=== PATIENT | female | born 1965 | race African-American/Black ===

== ENCOUNTER 2017-05-03 13:11 | Emergency (ER) | payer OTHER ==
[~2017-05-03] VITALS: Ht 165.1 cm; Wt 77.1 kg
--- NOTE | ~2017-05-03 | EKG ---
[place] [address] [facility] [place] [address] ELECTROCARDIOGRAM REPORT Name: ILEANA DRAKE Room #: DEP JAIMEE Du#: [id number] Admission: 05/03/17 Attend Phys: Discharge: 05/03/17 Date of : 63 Report #: [id number] THIS REPORT FOR: //name// [facility] ED Test Date: 2017-05-03 Test Time: 14:29:00 Pat Name: ILEANA DRAKE Department: Room: Gender: F Security Rep: : 1965 Requested By: Young Saleh Order Number: [id number] MD: Darron Ricks Measurements Intervals [place] Rate: 95 P: 76 [place]: 171 QRS: 11 QRSD: 74 T: 39 QT: 372 QTc: 468 Interpretive Statements Sinus rhythm Left atrial enlargement Probable left ventricular hypertrophy No previous ECG available for comparison Electronically Signed On 05-04-2017 7:11:30 CDT by Darron Ricks [email or web address] <ELECTRONICALLY SIGNED> By: Darron Ricks MD 05/04/17 0711 1429 1429 Darron Ricks MD /FANG
[~2017-05-03 13:11] MED LIST: AMLODIPINE BESY10 MG PO; ASPIRIN81 M2 PO; ATIVAN1 MG PO; CATAPRES0.2 MG PO; COREG25 MG PO; LIPITOR40 MG PO; PHENERGAN 25 MG25 M1 PO; PROTONIX 20 MG20 M1 PO; RESTORIL15 MG PO
[2017-05-03] MEDS ORDERED: NORVASC10 MG PO (13:46)
[2017-05-03 14:42] LABS: ABSOLUTE NEUTROPHILS 6.2 thou/uL (1.4-8.2); BASOPHILS 0.5 % (0.0-2.0); EOSINOPHILS 2.4 % (0.0-3.0); HEMATOCRIT 48.9 % (37.0-47.0); HEMOGLOBIN 16.6 gm/dL (12.0-15.0); LYMPHOCYTES 25.5 % (24.0-44.0); MCH 30.5 pg (26.0-34.0); MCV 89.8 fL (80.0-100.0); MONOCYTES 9.9 % (1.0-8.0); POLYS 61.7 % (36.0-66.0); RBC 5.44 mil/uL (4.20-5.00); RDW 14.1 % (10.5-14.5); WBC 10.1 thou/uL (4.0-11.0)
[2017-05-03 14:45] LABS: MANUAL DIFF NO
[2017-05-03 14:53] LABS: ANION GAP 11 mmol/L (7-16); BUN 31 mg/dL (7-18); CALCIUM 9.5 mg/dL (8.5-10.1); CHLORIDE 102 mmol/L (98-107); CO2 26 mmol/L (21-32); CREATININE 1.8 mg/dL (0.6-1.0); GLUCOSE 107 mg/dL (74-106); POTASSIUM 3.2 mmol/L (3.5-5.1); SODIUM 139 mmol/L (136-145)
[2017-05-03 15:02] LABS: TROPONIN-I < 0.04 ng/mL (<0.04-0.07)
[2017-05-03 15:12] LABS: LARGE PLATELETS FEW; PLATELET COUNT 168 thou/uL (150-400)
[2017-05-03] MEDS ORDERED: COREG25 MG PO (15:43)
[2017-05-03] MEDS ORDERED: CATAPRES0.2 M1 PO (15:43)
[2017-05-03] MEDS ORDERED: ATIVAN1 MG PO (15:43)
[2017-05-03 16:54] VITALS: BP 100/64
== END 2017-05-03 17:06 | disposition home or self-care (01) ==
LOC: ER 13:11
PROVIDERS: Emergency Medicine
DX: F41.9 Anxiety disorder, unspecified (principal); I10 Essential (primary) hypertension; F10.99 Alcohol use, unspecified with unspecified alcohol-induced disorder; F17.210 Nicotine dependence, cigarettes, uncomplicated; Z91.041 Radiographic dye allergy status; Z88.6 Allergy status to analgesic agent; Z88.0 Allergy status to penicillin; Z88.2 Allergy status to sulfonamides; Z88.8 Allergy status to other drugs, medicaments and biological substances